=== PATIENT | male | born 1960 | race Caucasian/White ===

== ENCOUNTER 2020-01-31 15:51 | Emergency (ER) | payer OTHER, SELFPAY ==
[2020-01-31] VITALS (12 sets, daily range): BP systolic 153–170; BP diastolic 87–106; PULSE 50–63; RESP 17–30; TEMP 37.1; O2SAT 96–98; BMI 34.0
[2020-01-31 17:09] LABS: Add Manual Diff / Slide Review NO; Basophils Absolute Auto 0 /uL (0-100); Basophils Percent Auto 0.8 % (0-2); Eosinophils Absolute Auto 200 /uL (0-450); Eosinophils Percent Auto 3.5 % (2-4); Hematocrit 40.5 % (41-53); Hemoglobin 14.4 g/dL (13.5-17.5); Lymphocytes Absolute Auto 1600 /uL (1100-4500); Lymphocytes Percent Auto 28.8 % (25-40); Mean Corpuscular HGB Conc 35.5 % (30-36); Mean Corpuscular Hemoglobin 29.7 PG (26-34); Mean Corpuscular Volume 83.8 fL (80-100); Monocytes Absolute Auto 500 /uL (0-900); Neutrophils Absolute Auto 3300 /uL (1500-7000); Neutrophils Percent Auto 58.9 % (50-75); Platelet Count 167 X10^3/uL (150-400); Red Blood Cell Count 4.83 X10^6/uL (4.5-5.9); Red Cell Distribution Width 13.7 % (11.6-14.8); White Blood Cell Count 5.7 X10^3/uL (4.5-11.0)
[2020-01-31 17:12] LABS: Prothrombin Time 11.8 SECONDS (10.1-12.7)
[2020-01-31 17:15] LABS: PTT Partial Thromboplastin Tim 31 SECONDS (26.4-36.2)
[2020-01-31 17:21] LABS: Alanine Aminotransferase 24 IU/L (<50); Albumin 3.8 g/dL (3.5-5.0); Albumin Globulin Ratio 1.5 (1.0-2.8); Alkaline Phosphatase 64 U/L (38-126); Aspartate Aminotransferase 26 IU/L (17-59); BUN Creatinine Ratio 20.5 (6-22); Bilirubin Total 0.4 mg/dL (0.2-1.3); Blood Urea Nitrogen 24 mg/dL (9-20); Calcium 8.6 mg/dL (8.4-10.2); Carbon Dioxide 27 mmol/L (22-32); Chloride 106 mmol/L (98-107); Estimated Glomerular Filt Rate > 60.0 mL/min (>60); Globulin 2.6 g/dL (1.7-4.1); Glucose 99 mg/dL (70-100); HEMOLYSIS 34 (0-50); Lipase 106 U/L (23-300); Potassium 4.1 mmol/L (3.4-5.1); Sodium 139 mmol/L (137-145); Total Protein 6.4 g/dL (6.3-8.2)
[2020-01-31 18:18] LABS: Creatine Kinase 137 U/L (55-170)
[2020-01-31 18:30] LABS: Troponin I < 0.012 ng/mL (0.01-0.034)
[2020-01-31 18:33] LABS: CKMB % Relative Index 1.2 % (1.5-5.0); Creatine Kinase MB 1.63 ng/mL (<2.37)
--- NOTE | 2020-01-31 18:58 | ED_ITS ---
HPI - General Adult General Chief complaint: Abdominal Pain Stated complaint: flank pain moving to chest, short of breath Time Seen by Provider: 01/31/20 18:09 Source: patient Mode of arrival: Ambulatory Limitations: no limitations History of Present Illness HPI narrative: Patient is a 59-year-old male here for evaluation of right-sided back/side/flank pain. States has been going on for the past couple days. No fevers. No blood in his urine. He has had a history of kidney stones in the past however he states that this does not feel exactly like prior kidney stone. He also has had pulmonary embolisms in the past. He states that this potentially feels like a prior pulmonary embolism. He is having no shortness of breath. No chest pain. He is on Xarelto. States he has been taking this medication on a daily basis. No lower extremity swelling. Has not tried anything for symptoms prior to arrival. No rashes. Related Data Allergies Allergy/AdvReac Type Severity Reaction Status Date / Time No Known Drug Allergies Allergy Verified 01/31/20 16:10 Review of Systems Constitutional Constitutional: Denies fever(s) and Denies headache(s) ENT Ears, Nose, Mouth, and Throat: Denies headache(s) Cardiovascular Cardiovascular: Denies chest pain and Denies dyspnea Respiratory Respiratory: Denies dyspnea Gastrointestinal Gastrointestinal: Denies nausea and Denies vomiting Comments: Right flank pain Genitourinary Genitourinary: Denies dysuria, Denies urinary hesitancy and Denies urinary incontinence Genitourinary: Denies dysuria, Denies urinary incontinence and Denies urinary hesitancy Musculoskeletal Comments: Right-sided back pain Integumentary/Breasts Skin/Breast: Denies lesions and Denies rash Neurologic Neurologic: Denies behavioral changes and Denies headache(s) Psychiatric Psychiatric: Denies behavioral changes Hematologic/Lymphatic Hematologic/Lymphatic: Denies easy bleeding and Denies easy bruising Allergic/Immunologic Allergic/Immunologic: Denies urticaria Patient History Medical History Kidney stones (Acute) Pulmonary embolism (Acute) Social History Smoking Status: Never smoker Smoking Status: Never smoker alcohol intake frequency: 3 or more drinks per day Substance Use Type: does not use Exam Initial Vital Signs Initial Vital Signs: Vital Signs Temperature 98.7 F 01/31/20 16:05 Pulse Rate 63 01/31/20 16:05 Respiratory Rate 22 01/31/20 16:05 Blood Pressure 158/88 H 01/31/20 16:05 Pulse Oximetry 96 01/31/20 16:05 Const General: cooperative and comfortable Limitations: mental status not altered HENMT Head: normal to inspection and normocephalic Resp Effort & Inspection: normal respiratory effort Auscultation: clear to auscultation bilaterally Cardio Rate: regular rate Rhythm: regular rhythm GI Inspection: non-distended Palpation: soft, No firm and No tender Back/Spine/Pelvis Back: No CVA tenderness Skin Lesions: no lesions Rashes: no rashes Neuro General: patient alert and patient awake Cognition: normal cognition Speech: speech normal Sensory Exam: no sensory deficits noted Extrem General: normal to inspection and capillary refill normal Psych Appearance: grossly normal and well kempt Course Orders Ordered: ED Orders 01/31/20 16:55 Complete Blood Count AUTO DIFF Stat Comprehensive Metabolic Panel Stat Lipase Stat Partial Thromboplastin Time Stat Prothrombin Time INR Stat Troponin & CK Cardiac Panel Stat 01/31/20 18:59 CT angio chest PE protocol Stat CT kidney ureter bladder (KUB) Stat Discontinued Medications Cyclobenzaprine HCl (Flexeril 10 Mg Prepack) 1 bottle MISC SEEINSTR ONE Stop: 01/31/20 20:41 Last Admin: 01/31/20 20:46 Dose: 1 bottle Documented by: LYNNETTEARTIN Hydromorphone HCl (Dilaudid) 1 mg IV NOW ONE Stop: 01/31/20 18:59 Last Admin: 01/31/20 19:09 Dose: 1 mg Documented by: YEISON Sodium Chloride (Normal Saline 0.9%) 1,000 mls @ 1,000 mls/hr IV BOLUS ONE Stop: 01/31/20 19:57 Last Infusion: 01/31/20 20:40 Dose: 0 mls/hr Documented by: LYNNETTEARTHUGO Admin: 01/31/20 19:10 Dose: 1,000 mls/hr Documented by: YEISON Vital Signs Vital signs: Vital Signs - 8 hr 01/31/20 17:50 01/31/20 17:51 01/31/20 18:00 Pulse Rate 54 L 53 L Respiratory Rate 22 Blood Pressure 153/87 H Pulse Oximetry 96 96 01/31/20 18:30 01/31/20 19:00 01/31/20 19:16 Pulse Rate 50 L 58 L 55 L Respiratory Rate 20 30 H Blood Pressure 167/105 H Pulse Oximetry 96 98 96 01/31/20 19:33 01/31/20 20:00 01/31/20 20:01 Pulse Rate 52 L 53 L 53 L Respiratory Rate 17 20 Blood Pressure 166/103 H Pulse Oximetry 98 97 97 01/31/20 20:30 01/31/20 20:48 Pulse Rate 52 L 52 L Respiratory Rate 22 23 Blood Pressure 170/99 H 162/106 H Pulse Oximetry 96 Medical Decision Making Lab Data Lab results reviewed: Yes I reviewed the patient's lab results. Result diagrams: 01/31/20 16:55 01/31/20 16:55 Labs: Lab Results 01/31/20 01/31/20 01/31/20 Range/Units 16:55 16:55 16:55 WBC 5.7 (4.5-11.0) X10^3/uL RBC 4.83 (4.5-5.9) X10^6/uL Hgb 14.4 (13.5-17.5) g/dL Hct 40.5 L (41-53) % MCV 83.8 (80-100) fL MCH 29.7 (26-34) PG MCHC 35.5 (30-36) % RDW 13.7 (11.6-14.8) % Plt Count 167 (150-400) X10^3/uL Neut % (Auto) 58.9 (50-75) % Lymph % (Auto) 28.8 (25-40) % Pender % (Auto) 8.0 (3-14) % Eos % (Auto) 3.5 (2-4) % Baso % (Auto) 0.8 (0-2) % Neut # (Auto) 3300 (5274-0250) /uL Lymph # (Auto) 1600 (1679-0837) /uL Pender # (Auto) 500 (0-900) /uL Eos # (Auto) 200 (0-450) /uL Baso # (Auto) 0 (0-100) /uL PT 11.8 (10.1-12.7) SECONDS INR 1.0 (0.9-1.3) APTT 31 (26.4-36.2) SECONDS Sodium 139 (137-145) mmol/L Potassium 4.1 (3.4-5.1) mmol/L Chloride 106 (98-107) mmol/L Carbon Dioxide 27 (22-32) mmol/L BUN 24 H (9-20) mg/dL Creatinine 1.17 (0.66-1.25) mg/dL Estimated GFR > 60.0 (>60) mL/min BUN/Creatinine Ratio 20.5 (6-22) Glucose 99 (70-100) mg/dL Calcium 8.6 (8.4-10.2) mg/dL Total Bilirubin 0.4 (0.2-1.3) mg/dL AST 26 (17-59) IU/L ALT 24 (<50) IU/L Alkaline Phosphatase 64 (38-126) U/L Total Creatine Kinase (55-170) U/L CK-MB (CK-2) (<2.37) ng/mL CK-MB (CK-2) Rel Index (1.5-5.0) % Troponin I (0.01-0.034) ng/mL Total Protein 6.4 (6.3-8.2) g/dL Albumin 3.8 (3.5-5.0) g/dL Globulin 2.6 (1.7-4.1) g/dL Albumin/Globulin Ratio 1.5 (1.0-2.8) Lipase 106 (23-300) U/L 01/31/20 Range/Units 16:55 WBC (4.5-11.0) X10^3/uL RBC (4.5-5.9) X10^6/uL Hgb (13.5-17.5) g/dL Hct (41-53) % MCV (80-100) fL MCH (26-34) PG MCHC (30-36) % RDW (11.6-14.8) % Plt Count (150-400) X10^3/uL Neut % (Auto) (50-75) % Lymph % (Auto) (25-40) % Pender % (Auto) (3-14) % Eos % (Auto) (2-4) % Baso % (Auto) (0-2) % Neut # (Auto) (8751-7794) /uL Lymph # (Auto) (4733-2487) /uL Pender # (Auto) (0-900) /uL Eos # (Auto) (0-450) /uL Baso # (Auto) (0-100) /uL PT (10.1-12.7) SECONDS INR (0.9-1.3) APTT (26.4-36.2) SECONDS Sodium (137-145) mmol/L Potassium (3.4-5.1) mmol/L Chloride (98-107) mmol/L Carbon Dioxide (22-32) mmol/L BUN (9-20) mg/dL Creatinine (0.66-1.25) mg/dL Estimated GFR (>60) mL/min BUN/Creatinine Ratio (6-22) Glucose (70-100) mg/dL Calcium (8.4-10.2) mg/dL Total Bilirubin (0.2-1.3) mg/dL AST (17-59) IU/L ALT (<50) IU/L Alkaline Phosphatase (38-126) U/L Total Creatine Kinase 137 (55-170) U/L CK-MB (CK-2) 1.63 (<2.37) ng/mL CK-MB (CK-2) Rel Index 1.2 L (1.5-5.0) % Troponin I < 0.012 (0.01-0.034) ng/mL Total Protein (6.3-8.2) g/dL Albumin (3.5-5.0) g/dL Globulin (1.7-4.1) g/dL Albumin/Globulin Ratio (1.0-2.8) Lipase (23-300) U/L Urine Dip Bedside Urine Glucose 100 mg/dl Bedside Urine Bilirubin - Negative Bedside Urine Ketone +/- 5 Urine Specific [place] 1.030 Bedside Urine Occult Blood - Negative Bedside Urine pH 6.0 Bedside Urine Protein - Negative Bedside Urine Urobilinogen - Negative Bedside Urine Nitrite - Negative Bedside Urine Leukocytes - Negative Esterase Point of care testing: Urine Dip Bedside Urine Glucose 100 mg/dl Bedside Urine Bilirubin - Negative Bedside Urine Ketone +/- 5 Urine Specific [place] 1.030 Bedside Urine Occult Blood - Negative Bedside Urine pH 6.0 Bedside Urine Protein - Negative Bedside Urine Urobilinogen - Negative Bedside Urine Nitrite - Negative Bedside Urine Leukocytes - Negative Esterase Imaging Data CT scan - abdomen/pelvis: Radiologist's Impression: [address] [address] [address] Scan Report Signed Patient: Parish Magallanes CMR#: [id number] : 1Acct:[id number] Age/Sex: 59 / MDate of Service: 01/31/20 Loc: ED Accession Number: [id number] Procedure: CT kidney ureter bladder (KUB) Ordering Provider: Hernán Cartagena D.O. PROCEDURE: CT KIDNEY URETER BLADDER (KUB) INDICATIONS: eval for Right sided stone TECHNIQUE: Noncontrast 5 mm thick sections acquired from the diaphragms to the symphysis. 5 mm thick coronal and sagittal reformats were then performed. For radiation dose reduction, the following was used: automated exposure control, adjustment of mA and/or kV according to patient size. COMPARISON: None. FINDINGS: Image quality: Excellent. Lung bases: Lung bases are clear. Heart size is normal. Urinary system: Both kidneys are normal in size. No kidney stones. No hydronephrosis or perinephric fat stranding. Both ureters appear non-dilated throughout their expected courses. Bladder wall thickness is normal; no calcified bladder stones. Other solid organs: Liver is normal in size. Gallbladder appears normal . Pancreas is normal in contours. Spleen is normal in size. No adrenal nodules. Peritoneum and bowel: Unenhanced bowel loops demonstrate normal wall thickness and caliber. No free fluid or air. Nodes and vessels: No retroperitoneal or mesenteric adenopathy by size criteria. Aorta and inferior vena cava are normal in caliber. Abdominal wall: No ventral hernias. Pelvis: No free pelvic fluid. No inguinal hernias or adenopathy. Bones: No suspicious bony lesions. No vertebral body compression fractures. IMPRESSION: No hydronephrosis or nephrolithiasis found. A source of asymmetric right-sided pain is not seen. What appears to be a normal appendix can be visualized at the right lower quadrant. Dictated by: Yannick Feng M.D. on 01/31/2020 at 19:48 Approved by: Yannick Feng M.D. on 01/31/2020 at 19:50 CT scan - chest: Radiologist's Impression: [address] [id number] [address] Scan Report Signed Patient: Parish Magallanes CMR#: [id number] : 1Acct:[id number] Age/Sex: 59 / MDate of Service: 01/31/20 Loc: ED Accession Number: [id number] Procedure: CT angio chest PE protocol Ordering Provider: Hernán Cartagena D.O. PROCEDURE: CT ANGIO CHEST PE PROTOCOL INDICATIONS: right side pain, hx of PE TECHNIQUE: After the administration of intravenous contrast, 2 mm thick sections acquired from the pulmonary apices to the posterior costophrenic angles. 3-dimensional maximum intensity projection (MIP) coronal and sagittal reformats were then acquired through the thorax. For radiation dose reduction, the following was used: automated exposure control, adjustment of mA and/or kV according to patient size. COMPARISON: None. FINDINGS: Image quality: Excellent. Pulmonary arteries: Pulmonary arteries are normal in size, and demonstrate no intraluminal filling defects to suggest central pulmonary embolism. Lungs and pleura: Lungs are clear. No pleural effusions or pneumothorax. Central and peripheral airways are patent. Mediastinum: Heart size is normal, without pericardial effusion. No mediastinal or hilar adenopathy. Thoracic aorta is normal in caliber and enhancement. Esophagus is normal in caliber, without hiatal hernia. Bones and chest wall: No suspicious bony lesions. Ribs and thoracic spine appear intact throughout. Thyroid gland appears normal where well seen . No axillary or supraclavicular adenopathy. Abdomen: Visualized upper abdominal solid organs appear normal in the early arterial phase of enhancement. IMPRESSION: No pulmonary embolus found, no sign of pneumonia. Source of current symptoms is identified. Dictated by: Yannick Feng M.D. on 01/31/2020 at 19:50 Approved by: Yannick Feng M.D. on 01/31/2020 at 19:52 [facility] Narrative Medical decision making narrative: Patient does have right-sided flank pain in the area that he describes of having the symptoms does include the area your expect his right lower lung to be. Pain is not reproducible with palpation. He does not have any abdominal tenderness. He is a afebrile. Not tachypneic. Not hypoxic however does have a history of pulmonary embolisms and he states that this may feel very slightly like what a prior pulmonary embolism feels like. He also states that he has had kidney stones in the past. He thinks that maybe this feels like a prior kidney stone but not exactly. He is not having blood in his urine or other urinary symptoms. Had a discussion with him regarding his symptoms. Informed him that if he has been taking his relatively on a daily basis that it is unlikely that he has a new pulmonary embolism however we did discuss that he is at high risk given the fact that he has had pulmonary embolisms in the past. After this discussion the patient did opt to have a CT scan of his chest for further evaluation. Given the location of the symptoms it is also located very closely to where the right kidney would be. It is not reproducible with palpation. This could also be a kidney stone however he has no blood in his urine. He states that his prior kidney stone diagnoses have not produced any blood in his urine. At the CT KUB of his abdomen pelvis is also ordered for further evaluation. Both these studies did not show pulmonary embolism nor kidney stone. His labs are unremarkable. Not hypoxic. He has no rashes that would make me concerned for zoster. Given the lack of other findings on his fairly extensive workup here in the ER this very well could just be musculoskeletal in origin. I discussed this with him. Plan will be is the sent him home with muscle relaxers. Informed him that if he does not get any relief from these that he should stop taking them is I am not 100% convinced that it is a muscle spasm. He was given return precautions and follow-up instructions. He expressed understanding and agreement. Discharge Plan Departure Patient Disposition: Home Clinical Impression: Acute right flank pain Discharge Date/Time: 01/31/20 20:55 Instructions: DI for Flank Pain Activity Restrictions/Additional Instructions: Take the muscle relaxers as needed for the symptoms like we discussed. You have no restrictions on your activities. Recommend you contact your primary provider for follow-up. Return to the emergency department for any new or worsening symptoms
[2020-01-31] MEDS: HYDROMORPHONE 1 MG INJ IV (19:09)
[2020-01-31] MEDS: SODIUM CHLORIDE 0.9% 1,000 ML 1000 ML IV (19:10)
[2020-01-31] MEDS: CYCLOBENZAPRINE 10 MG PREPACK 1 BOTTLE MISC (20:46)
== END 2020-01-31 20:55 | disposition home or self-care (01) ==
PROVIDERS: Emergency Medicine; Emergency Provider Emergency Medicine
DX: R10.31 Right lower quadrant pain (principal); Z86.711 Personal history of pulmonary embolism; Z87.442 Personal history of urinary calculi
CPT/HCPCS: 36415; 71275; 74176; 80053; 81003; 82550; 82553; 83690; 84484; 85025; 85610; 85730; 93005; 93010; 96361; 96374; 99284; 99285; J1170; Q9967

== ENCOUNTER → 2020-12-19 10:06 | Outpatient (CLI) | payer OTHER, SELFPAY ==
[2020-12-19 19:32] LABS: COVID19 - ORCAS (NP or Nasal) Negative (Negative)
== END ==
PROVIDERS: Referring Provider Family Medicine; Visit Provider Family Medicine
DX: Z20.822 Contact with and (suspected) exposure to COVID-19 (principal)
CPT/HCPCS: U0003